=== PATIENT | female | born 1955 | race Hispanic/Latino ===

== ENCOUNTER 2020-11-07 09:14 | Emergency (ER) | payer OTHER ==
[2020-11-07 11:04] LABS: SARS-COV-2 RT PCR POSITIVE (NEGATIVE)
--- NOTE | 2020-11-07 11:05 | ER ---
Nurse's Notes [facility] Name: Jennifer Bear Age: 65 yrs Sex: Female : 1955 Arrival Date: 11/07/2020 Time: 09:17 Bed 18 Private MD: Diagnosis: Coronavirus infection, unspecified Presentation: 11/07 09:26 Chief complaint: Sore throat, headache, and low grade fever x 4 days. Coronavirus hb screen: Client presents with at least one sign or symptom that may indicate coronavirus-19. Standard/surgical mask placed on the client. Provider contacted for isolation considerations. Ebola Screen: No symptoms or risks identified at this time. Initial Sepsis Screen: Does the patient meet any 2 criteria? No. Patient's initial sepsis screen is negative. Does the patient have a suspected source of infection? No. Patient's initial sepsis screen is negative. Risk Assessment: Do you want to hurt yourself or someone else? Patient reports no desire to harm self or others. Onset of symptoms was November 04, 2020. 09:26 Method Of Arrival: Ambulatory 09: Acuity: UZMA 4 hb Triage Assessment: : Headache History: Denies prior headaches. General: Appears in no apparent distress. hb Behavior is calm, cooperative. Pain: Pain currently is 6 out of 10 on a pain scale. EENT: No signs and/or symptoms were reported regarding the EENT system. Neuro: Level of Consciousness is awake, alert, obeys commands, Oriented to person, place, time, situation. Cardiovascular: Capillary refill < 3 seconds Patient's skin is warm and dry. Respiratory: Respiratory effort is even, unlabored, Respiratory pattern is regular, symmetrical. GI: No signs and/or symptoms were reported involving the gastrointestinal system. : No signs and/or symptoms were reported regarding the genitourinary system. Derm: Skin is pink, warm \T\ dry. Musculoskeletal: No signs and/or symptoms reported regarding the musculoskeletal system. Historical: - Allergies: : No Known Allergies; hb - Home Meds: None [Active]; hb - PMHx: : None; hb - PSHx: : Bunionectomy; Shoulder; Cholecystectomy; hb - Immunization history:: Adult Immunizations up to date. - Social history:: Smoking status: Patient denies any tobacco usage or history of. Screenin:30 Abuse screen: Denies threats or abuse. Denies injuries from another. Nutritional hb screening: No deficits noted. Tuberculosis screening: No symptoms or risk factors identified. Fall Risk None identified. Assessment: 09:30 General: see triage assessment . hb 10:30 Reassessment: Patient appears in no apparent distress at this time. Patient and/or hb family updated on plan of care and expected duration. Pain level reassessed. Patient is alert, oriented x 3, equal unlabored respirations, skin warm/dry/pink. Vital Signs: 09:26 BP 148 / 66; Pulse 79; Resp 16; Temp 97.3; Pulse Ox 98% on R/A; Weight 68.49 kg; Height hb 4 ft. 11 in. (149.86 cm); Pain 6/10; 09:51 BP 131 / 59; Pulse 73; Resp 17; Pulse Ox 96% on R/A; mc3 10:35 BP 120 / 61; Pulse 72; Resp 17; Pulse Ox 97% ; mc3 09:26 Body Mass Index 30.50 (68.49 kg, 149.86 cm) hb ED Course: 09:17 Patient arrived in ED. ds1 09:19 Dee Dee Lozano FNP-C is [facility]. kb 09:19 Gino Rene MD is Attending Physician. kb 09:30 Arm band placed on. hb 09:30 Patient has correct armband on for positive identification. Bed in low position. Call hb light in reach. Side rails up X 1. 09:30 No provider procedures requiring assistance completed. Patient did not have IV access hb during this emergency room visit. 09:43 Silvia Serrato, ALBER is Primary Nurse. hb 09:44 Triage completed. hb Administered Medications: No medications were administered Outcome: 09:48 Condition: good mc3 11:05 Discharge ordered by . kb 11:29 Discharged to home ambulatory. hb 11:29 Discharge instructions given to patient, Instructed on discharge instructions, follow up and referral plans. medication usage, Demonstrated understanding of instructions, follow-up care, medications. 11:30 Patient left the ED. hb Signatures: Dee Dee Lozano FNP-C FNP-Kay Rivas ds1 Silvia Serrato RN RN Melonie Mi RN RN mc3
--- NOTE | 2020-11-07 11:05 | EDPHYS ---
Physician Documentation [facility] Name: Jennifer Bear Age: 65 yrs Sex: Female : 1955 Arrival Date: 11/07/2020 Time: 09:17 Bed 18 Private MD: JANE Physician Gino Rene HPI: 11/07 09:28 This 65 yrs old Female presents to ER via Ambulatory with complaints of kb Headache, Sore Throat. 09:28 The patient or guardian reports cough, that is intermittent, described as mild, with no kb sputum, flu symptoms, myalgias. Onset: The symptoms/episode began/occurred 4 day(s) ago. Severity of symptoms: At their worst the symptoms were mild, moderate, in the emergency department the symptoms are unchanged. Modifying factors: The symptoms are alleviated by Tylenol, the symptoms are aggravated by nothing. Associated signs and symptoms: Pertinent positives: fever, nausea, sore throat, Pertinent negatives: chest pain, diarrhea, ear ache, rhinorrhea, vomiting. The patient has not experienced similar symptoms in the past. The patient has not recently seen a physician. Pt reports cough, sore throat, headaches, low-grade fever, malaise, fatigue for 4 days. . Historical: - Allergies: 09:29 No Known Allergies; hb - Home Meds: 09:29 None [Active]; hb - PMHx: 09:29 None; hb - PSHx: 09:29 Bunionectomy; Shoulder; Cholecystectomy; hb - Immunization history:: Adult Immunizations up to date. - Social history:: Smoking status: Patient denies any tobacco usage or history of. ROS: 09:28 Cardiovascular: Negative for chest pain, palpitations, and edema, Abdomen/GI: Negative kb for abdominal pain, vomiting, diarrhea, and constipation. +nausea Back: Negative for injury and pain, MS/Extremity: Negative for injury and deformity, Skin: Negative for injury, rash, and discoloration. 09:28 Constitutional: Positive for fatigue, fever, malaise. 09:28 ENT: Positive for sore throat. 09:28 Respiratory: Positive for cough, Negative for dyspnea on exertion, hemoptysis, orthopnea, pleurisy, shortness of breath, sputum production, wheezing. 09:28 Neuro: Positive for headache. Exam: 09:28 Constitutional: This is a well developed, well nourished patient who is awake, alert, kb and in no acute distress. Head/Face: Normocephalic, atraumatic. Chest/axilla: Normal chest wall appearance and motion. Nontender with no deformity. No lesions are appreciated. Cardiovascular: Regular rate and rhythm with a normal S1 and S2. No gallops, murmurs, or rubs. Normal PMI, no JVD. No pulse deficits. Respiratory: Lungs have equal breath sounds bilaterally, clear to auscultation and percussion. No rales, rhonchi or wheezes noted. No increased work of breathing, no retractions or nasal flaring. Abdomen/GI: Soft, non-tender, with normal bowel sounds. No distension or tympany. No guarding or rebound. No evidence of tenderness throughout. Skin: Warm, dry with normal turgor. Normal color with no rashes, no lesions, and no evidence of cellulitis. MS/ Extremity: Pulses equal, no cyanosis. Neurovascular intact. Full, normal range of motion. Neuro: Awake and alert, GCS 15, oriented to person, place, time, and situation. Cranial nerves II-XII grossly intact. Motor strength 5/5 in all extremities. Sensory grossly intact. Cerebellar exam normal. Normal gait. Vital Signs: 09:26 BP 148 / 66; Pulse 79; Resp 16; Temp 97.3; Pulse Ox 98% on R/A; Weight 68.49 kg; Height hb 4 ft. 11 in. (149.86 cm); Pain 6/10; 09:51 BP 131 / 59; Pulse 73; Resp 17; Pulse Ox 96% on R/A; mc3 10:35 BP 120 / 61; Pulse 72; Resp 17; Pulse Ox 97% ; mc3 09:26 Body Mass Index 30.50 (68.49 kg, 149.86 cm) hb MDM: 09:22 Patient medically screened. kb 09:32 Data reviewed: vital signs, nurses notes. Data interpreted: Pulse oximetry: on room air kb is 98 %. Interpretation: normal. 11:04 Counseling: I had a detailed discussion with the patient and/or guardian regarding: the kb historical points, exam findings, and any diagnostic results supporting the discharge/admit diagnosis, lab results, the need for outpatient follow up, a family practitioner, to return to the emergency department if symptoms worsen or persist or if there are any questions or concerns that arise at home. 11/07 09:27 Order name: Strep kb 11/07 09:27 Order name: Flu kb 11/07 09:28 Order name: Group A Streptococcus Rapid Sc; Complete Time: 10:37 EDGA 11/07 10:32 Order name: Throat Culture EDGA 11/07 11:04 Order name: COVID-19/FLU A+B; Complete Time: 11:05 EDGA Administered Medications: No medications were administered Disposition: 11/07/20 11:05 Discharged to Home. Impression: Coronavirus infection, unspecified. - Condition is Stable. - Discharge Instructions: COVID-19. - Medication Reconciliation Form, Thank You Letter, Antibiotic Education, Prescription Opioid Use form. - Follow up: Emergency Department; When: As needed; Reason: Worsening of condition. Follow up: Private Physician; When: 2 - 3 days; Reason: Recheck today's complaints, Continuance of care, Re-evaluation by your physician. Addendum: 11/08/2020 14:43 Co-signature as Attending Physician, Gino Rene MD I agree with the assessment and c [place] plan of care. Signatures: Dispatcher [employer] [facility] Dee Dee Lozano, SUMMER CLERK-C SUMMER CLERK-Ckb Gino Rene MD MD cha Baxter, Heather, RN RN hb Corrections: (The following items were deleted from the chart) 11/07 10:00 09:28 Influenza Screen (A ordered. [facility] EDGA 10:00 09:28 CORONAVIRUS+MR.LAB.BRZ ordered. [facility] 11:30 11:05 11/07/2020 11:05 Discharged to Home. Impression: Coronavirus infection, hb unspecified. Condition is Stable. Forms are Medication Reconciliation Form, Thank You Letter, Antibiotic Education, Prescription Opioid Use. Follow up: Emergency Department; When: As needed; Reason: Worsening of condition. Follow up: Private Physician; When: 2 - 3 days; Reason: Recheck today's complaints, Continuance of care, Re-evaluation by your physician. kb
[2020-11-07 11:41] VITALS: TEMP 97.3
[2020-11-07 11:44] VITALS: BP 120/61; O2SAT 97
== END 2020-11-07 11:30 | disposition home or self-care (01) ==
LOC: ER 09:14
DX: U07.1 COVID-19 (principal)
CPT/HCPCS: 87070; 87081; 0240U; 99281